=== PATIENT | female | born 1990 | race Caucasian/White ===

== ENCOUNTER 2017-12-07 00:30 | Emergency (ER) | payer OTHER ==
[~2017-12-07] VITALS: Ht 157.5 cm; Wt 117.5 kg
[2017-12-07 00:36] VITALS: Ht 157.5 cm; Wt 117.5 kg
[2017-12-07 03:00] VITALS: BP 130/70
== END 2017-12-07 03:00 | disposition home or self-care (01) ==
LOC: ED 00:30
DX: L50.9 Urticaria, unspecified (principal); J45.909 Unspecified asthma, uncomplicated; Z88.1 Allergy status to other antibiotic agents
CPT/HCPCS: J0171; J7512

== ENCOUNTER 2019-01-15 20:09 | Emergency (ER) | payer OTHER ==
[~2019-01-15] VITALS: Ht 157.5 cm; Wt 119.3 kg
[2019-01-15 20:41] VITALS: Ht 157.5 cm; Wt 119.3 kg
[2019-01-15 21:49] VITALS: BP 139/64
== END 2019-01-15 21:49 | disposition home or self-care (01) ==
LOC: ED 20:09
DX: N64.4 Mastodynia (principal); J45.909 Unspecified asthma, uncomplicated

== ENCOUNTER 2019-08-12 08:42 | Emergency (ER) | payer OTHER ==
[~2019-08-12] VITALS: Ht 157.5 cm; Wt 123.8 kg
[2019-08-12 08:46] VITALS: Ht 157.5 cm; Wt 123.8 kg
[2019-08-12 09:34] LABS: BASOPHIL % 0.6 % (0-2); PLATELET COUNT 230 x10^3mcL (130-400); RED CELL DISTRIBUTION WIDTH 12.3 % (11.5-14.5)
[2019-08-12 09:44] LABS: CALCIUM 8.4 mg/dL (8.5-10.1); CARBON DIOXIDE 28.3 mmol/L (21-32); CHLORIDE SERUM 106 mmol/L (98-107); CREATININE SERUM 0.7 mg/dL (0.6-1.0); GFR1 > 60 mL/min; GLUCOSE SERUM 85 mg/dL (74-106); SODIUM SERUM 138 mmol/L (136-145)
[2019-08-12 09:48] LABS: ALKALINE PHOSPHATASE 73 U/L (46-116); ALT/SGPT 23 U/L (14-59); AST/SGOT 13 U/L (15-37); BILIRUBIN TOTAL 0.4 mg/dL (0.20-1.00); LIPASE 93 IU/L (73-393); TOTAL PROTEIN, SERUM 6.7 g/dL (6.4-8.2)
[2019-08-12 09:51] LABS: ALBUMIN 3.1 g/dL (3.4-5.0); AMYLASE 21 U/L (25-115)
[2019-08-12 11:05] VITALS: BP 128/102
== END 2019-08-12 11:05 | disposition home or self-care (01) ==
LOC: ED 08:42
PROVIDERS: Specialist
DX: K80.50 Calculus of bile duct without cholangitis or cholecystitis without obstruction (principal); J45.909 Unspecified asthma, uncomplicated
CPT/HCPCS: 36415

== ENCOUNTER 2019-09-29 21:23 | Emergency (ER) | payer OTHER ==
[~2019-09-29] VITALS: Ht 157.5 cm; Wt 121.1 kg
[2019-09-29 21:27] VITALS: Ht 157.5 cm; Wt 121.1 kg
[2019-09-30 00:29] VITALS: BP 137/77
== END 2019-09-30 00:29 | disposition home or self-care (01) ==
LOC: ED 21:23
DX: J45.901 Unspecified asthma with (acute) exacerbation (principal); J06.9 Acute upper respiratory infection, unspecified
CPT/HCPCS: J7512; J7613; Q0092